=== PATIENT | female | born 1980 | race Two or more races ===

== ENCOUNTER 2019-03-25 12:58 | Emergency (ER) | payer MEDICAID ==
[~2019-03-25] VITALS: Ht 157.5 cm; Wt 55.5 kg
[2019-03-25 13:24] VITALS: BP 127/80
== END 2019-03-25 17:45 | disposition left against medical advice (07) ==
LOC: ER 12:58
DX: I49.9 Cardiac arrhythmia, unspecified (principal); R25.2 Cramp and spasm; L74.510 Primary focal hyperhidrosis, axilla; Z53.21 Procedure and treatment not carried out due to patient leaving prior to being seen by health care provider